=== PATIENT | female | born 1985 | race Caucasian/White ===

== ENCOUNTER 2020-10-10 10:07 | Emergency (ER) | payer OTHER, SELFPAY ==
[2020-10-10 10:25] VITALS: BP 101/84; PULSE 92; RESP 14; TEMP 36.7; O2SAT 99
--- NOTE | 2020-10-10 10:44 | ED.URI ---
HPI - URI/Sore Throat General Chief Complaint: Upper Respiratory Infection Stated Complaint: Sore Throat Time Seen by Provider: 10/10/20 10:45 Source: patient and RN notes reviewed Mode of arrival: ambulatory Limitations: no limitations History of Present Illness HPI Narrative: 35-year-old female presents with concern for sore throat that started this morning. She denies nasal congestion, rhinorrhea, cough, body aches, chills, fever, sweats, shortness of breath. Reports 2 kids at her son's school tested positive for strep. Reports she has an appointment for a Covid test tomorrow. She denies any [id number] intervention MD elicited complaint: sore throat Related Data Home Medications Medication Instructions Recorded Confirmed metronidazole 500 mg PO Q12H 10/10/20 10/10/20 Allergies Allergy/AdvReac Type Severity Reaction Status Date / Time No Known Allergies Allergy Verified 10/10/20 10:42 Review of Systems Review of Systems: CONSTITUTIONAL: Denies malaise, chills, sweats, or fever. EYES: Denies visual changes, redness, or discharge. ENT: Denies rhinorrhea, congestion, sinus pain, otalgia. Reports sore throat. CARDIOVASCULAR: Denies chest pain, palpitations, or edema. RESPIRATORY: Denies cough or dyspnea. GASTROINTESTINAL: Denies abdominal pain, nausea, vomiting, diarrhea SKIN: Denies rash or itching. MUSCULOSKELETAL: Denies myalgia. NEUROLOGIC: Denies headache. All systems reviewed & are unremarkable except as noted in HPI and below PMFSH Comments At time of signature, agree with nursing past medical, surgical, social and family history. There is no relevant family history pertinent to the presenting complaint Exam Narrative: GENERAL: Well-appearing, well-nourished, and in no acute distress. HEAD: Normocephalic EYES: PERRLA, conjunctivae clear ENT: Nares clear. Mucous membranes moist. TM pearly wright with sharp light reflex bilaterally; no tragal tenderness. Oropharynx not erythematous without lesions. Tonsils not enlarged and without exudate, no drooling, no hoarseness, no trismus, uvula midline. NECK: Supple. No lymphadenopathy CHEST: Clear to auscultation, breath sounds equal. No wheezing, rhonchi, rales, or stridor. No respiratory distress, speaks in full sentences. HEART: Regular rate and rhythm. No murmur heard. SKIN: Warm, dry, no rash. NEURO: Alert and oriented x3. PSYCH: Normal mood and affect Course Course Emergency Course: Patient is aware of diagnosis, understands and agrees to treatment plan. Anticipatory guidance given. Patient agrees to follow-up as directed and is aware of reasons to seek care at the emergency department. Portions of this record may have been created with voice recognition software Vital Signs Vital signs: Vital Signs Temperature 98.0 F 10/10/20 10:25 Pulse Rate 92 10/10/20 10:25 Respiratory Rate 14 10/10/20 10:25 Blood Pressure 101/84 10/10/20 10:25 Pulse Oximetry 99 10/10/20 10:25 Temperature 98.0 F 10/10/20 10:25 Pulse Rate 92 10/10/20 10:25 Respiratory Rate 14 10/10/20 10:25 Blood Pressure 101/84 10/10/20 10:25 Pulse Oximetry 99 10/10/20 10:25 Reviewed. MDM - URI/Sore Throat MDM Narrative Medical decision making narrative: Differential diagnosis considered: Taylor virus, strep pharyngitis, allergic rhinitis, upper respiratory tract infection, sinusitis, rhinosinusitis, nasopharyngitis. viral pharyngitis, otitis media, otitis externa, pneumonia, bronchitis, viral cough syndrome, viral syndrome, and influenza. Exam findings show no acute concerns or changes; patient is non-toxic appearing and is in no distress. Patient is appropriate for outpatient treatment and follow-up. Lab Data Attestation: I reviewed the patient's lab results. Critical Care Time Critical Care Time Critical Care Time: No Discharge Plan Discharge Clinical Impression: Pharyngitis Qualifiers: Pharyngitis/tonsillitis etiology: unspecified etiology Qual
== END 2020-10-10 11:01 | disposition home or self-care (01) ==
PROVIDERS: Emergency Provider Nurse Practitioner
DX: J02.9 Acute pharyngitis, unspecified (principal)
CPT/HCPCS: 87081; 87880; 99203; G0463

== ENCOUNTER 2024-01-09 15:39 | Emergency (ER) | payer OTHER, SELFPAY ==
--- NOTE | ~2024-01-09 | XR_ITS ---
EXAMINATION: XR chest 2V Exam Date/Time: 01/09/2024 16:32 CDT HISTORY: chest Comparison: Cough, wheeze, right back pain. RESULT: Lines, tubes, and devices: None. Lungs and pleura: Clear. Cardiomediastinal silhouette: 2.6 cm ovoid density projecting over the left hilum, without definitiv e correlate in the lateral view. Cardiomediastinal silhouette otherwise normal. Other: No acute osseous or upper abdominal finding. IMPRESSION: No focal consolidation, pleural effusion, or pneumothorax. 2.6 cm ovoid density over the left hilum, likely representing artifact, noting that lymphadenopathy o r other mass cannot be excluded. Recommend comparison to outside studies if available and consider no nemergent but timely low-dose noncontrast CT of the chest. Reviewed, dictated and finalized at location K. IMPRESSION: No focal consolidation, pleural effusion, or pneumothorax. 2.6 cm ovoid density over the left hilum, likely representing artifact, noting that lymphadenopathy or other mass cannot be excluded. Recommend comparison to outside studies if available and consider nonemergent but timely low-dose nonco ntrast CT of the chest.
[2024-01-09 15:50] VITALS: BP 119/77; PULSE 102; RESP 20; TEMP 37.7; O2SAT 100
--- NOTE | 2024-01-09 16:24 | ED_ITS ---
HPI - URI/Sore Throat General Chief Complaint: Upper Respiratory Infection Stated Complaint: Wheezing/cough Time Seen by Provider: 01/09/24 16:25 Source: patient, RN notes reviewed and old records reviewed Mode of arrival: ambulatory Limitations: no limitations History of Present Illness HPI Narrative: 38-year-old female to Care upper back pain feeling feverish wheezing and cough since this morning. Patient states that a a co-worker is currently being treated for cancer and that patient wants to be extra cautious about being sick at work. Patient denies injury, difficulty breathing, allergies, chest pain, pertinent medical history. Patient has not attempted to treat her symptoms at home. Patient able to tolerate fluids by mouth. Patient resting comfortably in exam room in no acute distress. Respirations even and nonlabored. Related Data Home Medications Medication Instructions Recorded Confirmed No Home Medications 01/09/24 01/09/24 Allergies Allergy/AdvReac Type Severity Reaction Status Date / Time No Known Allergies Allergy Verified 01/09/24 16:14 Review of Systems Review of Systems: All systems reviewed & are unremarkable except as noted in HPI and below Constitutional: Constitutional: Reports as per HPI and Reports fever(s) Eyes: Eyes: Reports no additional eye complaints ENT: Reports system reviewed and no additional complaints, except as documented Cardiovascular: Cardiovascular: Reports no additional cardiovascular complaints, Denies chest pain and Denies dyspnea Respiratory: Respiratory: Reports no additional respiratory complaints, Reports cough, Denies dyspnea and Reports wheezing Musculoskeletal: Musculoskeletal: Reports as per HPI and Reports back pain ( right upper) Neurologic: Reports system reviewed and no additional complaints, except as documented Psychiatric: Psychiatric: Reports no additional psychiatric complaints PMFSH Comments At the time of my signature, I reviewed and agree with the nursing past medical, surgical, social, and family history. There is no relevant family history pertinent to the patient complaint. Exam Const: General: cooperative, healthy appearing, no acute distress, alert, anxious and well nourished Nutritional Appearance: well nourished Orientation/consciousness: patient oriented x3 Limitations: no limitations HENMT: Head: normal to inspection Ears: external ears normal Face/Nose/Sinus: Normal external nose present, Normal nares present, normal facial exam, No erythema and No edema Face and sinus: normal facial exam, no erythema and no edema Mouth: Yes Normal oral and palatal mucosa present Eyes: General: appearance normal, both eyes and all related structures Neck: Neck: normal visual inspection, full ROM and no meningeal signs Lymphatic: no lymphadenopathy noted and no lymphedema noted Chest: Chest palpation & inspection: normal inspection of the chest Resp: Effort & Inspection: normal respiratory effort and able to speak in complete sentences Auscultation: clear to auscultation bilaterally Cardio: Jugular venous distension: no JVD Rate: regular rate Rhythm: regular rhythm Back/Spine/Pelvis: Cervical Spine: cervical ROM normal Skin: General skin exam: normal color, no rashes or lesions noted and turgor normal Neuro: General: patient oriented x3, gait normal, moves all extremities and no meningeal signs Speech: normal speech Gait exam (Neuro): Normal gait present Extrem: General: normal to inspection, full ROM and capillary refill normal Psych: Appearance: grossly normal and well kempt Course Course Emergency Course: Some parts of this dictation were generated by voice recognition software and may contain typographical and/or grammatical inaccuracies. Level of Care: Express Care Visit Vital Signs Vital signs: Vital Signs Temperature 37.7 C H 01/09/24 15:50 Pulse Rate 102 H 01/09/24 15:50 Respiratory Rate 20 01/09/24 15:50 Blood Pressure 119/77 01/09/24 15:50 Pulse Oximetry 100 01/09/24 15:50 Oxygen Delivery Room Air 01/09/24 15:50 Temperature 37.7 C H 01/09/24 15:50 Pulse Rate 102 H 01/09/24 15:50 Respiratory Rate 20 01/09/24 15:50 Blood Pressure 119/77 01/09/24 15:50 Pulse Oximetry 100 01/09/24 15:50 Oxygen Delivery Room Air 01/09/24 15:50 reviewed MDM - URI/Sore Throat MDM Narrative Medical decision making narrative: 38-year-old female to Care upper back pain feeling feverish wheezing and cough since this morning. Patient states that a a co-worker is currently being treated for cancer and that patient wants to be extra cautious about being sick at work. Patient denies injury, difficulty breathing, allergies, chest pain, pertinent medical history. Patient has not attempted to treat her symptoms at home. Patient able to tolerate fluids by mouth. Patient resting comfortably in exam room in no acute distress. Respirations even and nonlabored. patient exam unremarkable. Radiology impression: No focal consolidation, pleural effusion, or pneumothorax. 2.6 cm ovoid density over the left hilum, likely representing artifact, noting that lymphadenopathy or other mass cannot be excluded. Recommend comparison to outside studies if available and consider nonemergent but timely low-dose noncontrast CT of the chest. Discussed radiology results including incidental finding with patient. Patient advised to follow-up with primary care provider. Patient verbalized understanding. Patient is sitting comfortably in exam room nontoxic in appearance. Patient appropriate for outpatient treatment and follow-up. Discharge instructions reviewed with patient, as well as provided in writing per nursing staff. The instructions also include specific and strict return/GO TO THE ER as well as f/u information. All questions have been answered, and the patient deny any further questions with discharge and discharge plan. Some parts of this dictation were generated by voice recognition software and may contain typographical and/or grammatical inaccuracies. Differential Diagnosis Differential diagnosis: Likely upper respiratory infection, croup, otitis media, sinusitis, viral infection, bronchitis, influenza and pharyngitis Imaging Data Radiologist's impression: [place] [address] XRay Report Signed Patient: Yasmine Nicholas : 1985 MR#: [id number] Age: 38 Acct:[id number] Loc: [facility] ADM Date: 01/09/24Attending Dr: Ordering Physician: Marie Garcia APRN Date of Service: 01/09/24 Procedure(s): XR chest 2V Accession Number(s): [id number] cc: Marie Garcia APRN; FREELANCE DESIGNER PHYSICIAN~ EXAMINATION: XR chest 2V Exam Date/Time: 01/09/2024 16:32 CDT HISTORY: chest Comparison: Cough, wheeze, right back pain. RESULT: Lines, tubes, and devices: None. Lungs and pleura: Clear. Cardiomediastinal silhouette: 2.6 cm ovoid density projecting over the left hilum, without definitive correlate in the lateral view. Cardiomediastinal silhouette otherwise normal. Other: No acute osseous or upper abdominal finding. IMPRESSION: No focal consolidation, pleural effusion, or pneumothorax. 2.6 cm ovoid density over the left hilum, likely representing artifact, noting that lymphadenopathy or other mass cannot be excluded. Recommend comparison to outside studies if available and consider nonemergent but timely low-dose noncontrast CT of the chest. Discharge Plan Discharge Clinical Impression: Upper respiratory infection Patient Disposition: Home, Self-Care Condition: Stable Instructions: Upper Respiratory Infection (ED) Additional Instructions: Your symptoms are likely due to a viral illness, which is not treated with antibiotics. Viral symptoms can be present for up to a few weeks. -Alternate Tylenol and Motrin per package directions for fever or pain. -Antihistamine medication such as Benadryl at night and Zyrtec/Claritin/Dulce during the day can help improve symptoms. -Use Flonase twice a day for 5 days then daily to help reduce the inflammation and dry up your sinuses. -You can also use Sudafed or Mucinex. Be sure to drink plenty of water with these medications at least 8 ounces with every dose and it is important to drink 8 to 10 glasses of water per day. Water is a natural decongestant -Eat and drink things that are easy to swallow, like tea or soup, or popsicles. -Oral rinses such as: Salt water gargles and/or may use topical anesthetic (eg. Chloraseptic spray) or lozenges to relieve dryness or throat pain). -Frequent hand washing or hand communications engineering technician is one of the best ways to prevent spread of infection. -Using a vaporizer or humidifier at night will also help thin secretions and help with coughing up phlegm. -Follow up with primary care provider in 2-3 days if condition is not improving; or seek ER visit if you have trouble breathing, cannot drink enough fluids, have muffled voice, difficulty opening your mouth, or severe swelling. please contact your primary care provider tomorrow morning a follow-up appointment to discuss completing noncontrast CT of the chest Prescriptions: No Action No Home Medications Follow-up/Referrals: PHYSICIAN,FREELANCE DESIGNER [Primary Care Provider] - Stand Alone Forms: Work/School Release IP
== END 2024-01-09 17:05 | disposition home or self-care (01) ==
PROVIDERS: Emergency Provider Nurse Practitioner Family
DX: J06.9 Acute upper respiratory infection, unspecified (principal)
CPT/HCPCS: 71046; 99213; G0463